=== PATIENT | female | born 1995 ===

== ENCOUNTER 2019-01-03 02:29 | Emergency (ER) | payer SELFPAY ==
[2019-01-03 03:07] VITALS: BP 119/52
[2019-01-03 04:29] LABS: HCG Qualitative,Urine Positive (Negative)
[2019-01-03 04:30] LABS: Bacteria,Urine 1+ /HPF (Negative); Bilirubin,Urine NEG (Negative); Blood,Urine NEG (Negative); Color,Urine Yellow (Yellow); Mucus,Urine FEW /HPF; Protein,Urine <15 mg/dL mg/dL (Negative); Urobilinogen,Urine < 2.0 mg/dL (<2.0)
== END 2019-01-03 07:41 | disposition left against medical advice (07) ==
LOC: ED 02:29
DX: M54.5 Low back pain (principal); Z53.21 Procedure and treatment not carried out due to patient leaving prior to being seen by health care provider
CPT/HCPCS: 81001; 81025